=== PATIENT | female | born 1955 | race Caucasian/White ===

== ENCOUNTER 2020-10-23 20:34 | Inpatient (IN) ==
[2020-10-23] MEDS ORDERED: Naloxone 0.4 MG/ML INJ IVP PRN (22:48)
[2020-10-23] MEDS ORDERED: Ondansetron 4 MG/2 ML VIAL IVP PRN (22:48)
[2020-10-24] MEDS ORDERED: D5% in Water 1,000 ML IVC PRN ×2 (00:06→21:37)
[2020-10-24] MEDS ORDERED: Dextrose Gel 15 GM/37.5 ML TUBE PO PRN ×4 (00:06→21:37)
[2020-10-24] MEDS ORDERED: *HR* Dextrose 50 % in Water (Vial) 50 ML VIAL IVP PRN ×2 (00:06→21:37)
[2020-10-24] MEDS: *HR* OxyCODONE Immed Rel 5 MG TABLET PO PRN ×2 (00:33→10:35)
[2020-10-24] MEDS ORDERED: Perflutren Lipid Microsphere 1.3 ML in 0.9 % Sodium Chloride 8.7 ML IVP PRN (00:38)
[2020-10-24 01:43] LABS: Basophils % 0.2 %; Hematocrit 29.2 % (35.3-44.9); Lymphocytes % 2.9 %; Mean Corpuscular HGB Conc 27.4 g/dL (31.6-35.5); Mean Platelet Volume 12.4 fL (9.4-12.4)
[2020-10-24 01:45] LABS: Immature Granulocytes % 0.4 % (0-4); Lymphocytes # 0.5 K/mcL (0.6-4.6); Mean Corpuscular Hemoglobin 27.1 pg (28.0-33.3); Monocytes # 1.3 K/mcL (0.0-1.3); Monocytes % 8.2 %; Neutrophils # 14.4 K/mcL (1.6-8.9); Platelet Count 152 K/mcL (140-400); Red Blood Count 2.95 M/mcL (3.82-4.97); Red Cell Distribution Width 13.1 % (11.5-14.5); Segmented Neutrophils % 88.3 %; White Blood Count 16.3 K/mcL (4.3-11.1)
[2020-10-24 02:29] LABS: BUN/Creatinine Ratio 23 (6-26); Blood Urea Nitrogen 16 mg/dL (8-23); Calcium 8.4 mg/dL (8.6-10.3); Carbon Dioxide > 45 mEq/L (23-29); Chloride 86 mEq/L (98-107); Glucose 189 mg/dL (70-105); Osmolality,Calculated 296 (280-300); Sodium 140 mEq/L (136-145); eGFR For African Americans > 60 (> 60); eGFR For Non-African Americans > 60 (> 60)
[2020-10-24 02:39] LABS: Anisocytosis 1+ (Not Present); Hypochromasia Present (Not Present); Poikilocytosis 1+ (Not Present)
[2020-10-24 02:40] LABS: Platelet Estimate Normal (Normal); Stomatocytes 2+ (Not Present)
[2020-10-24] MEDS: Insulin LISPRO 300 UNITS/3 ML VIAL SUBQ SCH ×3 (06:20→18:46)
[2020-10-24 07:37] LABS: Adenovirus Not Detected (Not Detect); Bordetella Pertussis Not Detected (Not Detect); Chlamydophila pneumoniae Not Detected (Not Detect); Coronavirus 229E Not Detected (Not Detect); Coronavirus HKU1 Not Detected (Not Detect); Coronavirus NL63 Not Detected (Not Detect); Coronavirus OC43 Not Detected (Not Detect); Human Metapneumovirus Not Detected (Not Detect); Human Rhinovirus/Enterovirus Not Detected (Not Detect); Influenza A Subtype 2009 H1 Not Detected (Not Detect); Influenza B Not Detected (Not Detect); Mycoplasma pneumoniae Not Detected (Not Detect); Parainfluenza Virus 1 Not Detected (Not Detect); Parainfluenza Virus 2 Not Detected (Not Detect); Parainfluenza Virus 3 Not Detected (Not Detect); Parainfluenza Virus 4 Not Detected (Not Detect); Respiratory Syncytial Virus Not Detected (Not Detect); SARS-CoV-2 Not Detected (Not Detect)
[2020-10-24] MEDS ORDERED: Aspirin 81 MG TAB.CHEW PO SCH (09:00)
[2020-10-24] MEDS ORDERED: DilTIAZem CD (24hr) 120 MG CAP.ER.24H PO SCH (09:00)
[2020-10-24] MEDS ORDERED: Tiotropium 10 INH DOSE IH SCH (10:00)
[2020-10-24] MEDS ORDERED: Tiotropium 10 INH DOSE IH ONE (11:07)
[2020-10-24] MEDS: Budesonide/Formoterol 160/4.5 1 PUFF INH IH SCH ×2 (11:10→20:13)
[2020-10-24] MEDS ORDERED: Furosemide 40 MG TABLET PO SCH (15:15)
[2020-10-24] MEDS ORDERED: Vancomycin 1,000 MG VIAL ONE (16:35)
[2020-10-24] MEDS ORDERED: Ethanol\\Acetic Acid\\Na Ace\\Ben 1,000 ML IRRIG.SOLN IR ONE (16:35)
[2020-10-24] MEDS ORDERED: *HR* FentaNYL (PF) 100 MCG/2 ML VIAL ONE ×3 (16:43→17:30)
[2020-10-24] MEDS ORDERED: *HR* Propofol 200 MG/20 ML VIAL IVP ONE ×2 (17:28→17:30)
[2020-10-24] MEDS ORDERED: *HR* Rocuronium Bromide 50 MG/5 ML VIAL ONE ×2 (17:30→17:31)
[2020-10-24] MEDS ORDERED: *HR* Succinylcholine 200 MG/10 ML VIAL IVP ONE ×2 (17:30→17:31)
[2020-10-24] MEDS ORDERED: Lidocaine -MPF 2% 2 ML VIAL ONE ×2 (17:30→17:31)
[2020-10-24] MEDS ORDERED: Ondansetron 4 MG/2 ML VIAL ONE (17:31)
[2020-10-24] MEDS ORDERED: Dexamethasone 4 MG/ML VIAL ONE (17:31)
[2020-10-24] MEDS ORDERED: Ropivacaine/PF 0.5% 30 ML VIAL ONE (17:33)
[2020-10-24] MEDS ORDERED: *HR* Vasopressin 20 UNIT/ML VIAL ONE (18:05)
[2020-10-24] MEDS ORDERED: Albumin Human 5% 0 GM/0 ML IV.SOLN ONE (18:05)
[2020-10-24] MEDS ORDERED: Tranexamic Acid 1,000 MG/10 ML VIAL ONE (18:31)
[2020-10-24] MEDS ORDERED: Sugammadex Sodium 200 MG/2 ML VIAL IV ONE (18:50)
[2020-10-24] MEDS ORDERED: *HR* PHENYLEPHRINE 1,000 MCG/10 ML SYRINGE IVP ONE (19:03)
[2020-10-24] MEDS ORDERED: Ringers Solution, Lactated 1,000 ML ONE (20:28)
[2020-10-24 20:50] LABS: Hematocrit 28.5 % (35.3-44.9)
[2020-10-24] MEDS ORDERED: ROSUVASTATIN CALCIUM 5 MG PO SCH (21:00)
[2020-10-24] MEDS ORDERED: Ringers Solution, Lactated 1,000 ML IVC SCH (21:37)
[2020-10-24] MEDS ORDERED: Sennosides 8.6 MG TABLET PO PRN (21:37)
[2020-10-24] MEDS ORDERED: Ondansetron 4 MG/2 ML VIAL IVP PRN (21:37)
[2020-10-24] MEDS ORDERED: *HR* Promethazine 25 MG/ML VIAL IM PRN (21:37)
[2020-10-24] MEDS ORDERED: MOM Conc 10 ML UD.LIQ PO PRN (21:37)
[2020-10-24] MEDS ORDERED: Naloxone 0.4 MG/ML INJ IVP PRN (21:37)
[2020-10-24] MEDS ORDERED: *HR* OxyCODONE Immed Rel 5 MG TABLET PO PRN (21:37)
[2020-10-24] MEDS ORDERED: HYDROcodone BIT/Homatropine 5 MG TABLET PO PRN (21:37)
[2020-10-24] MEDS ORDERED: Budesonide/Formoterol 160/4.5 1 PUFF INH IH SCH (22:00)
[2020-10-24] MEDS ORDERED: Acetaminophen IV 500 MG/50 ML BAG IVPB ONE (22:30)
[2020-10-25] MEDS: Insulin LISPRO 300 UNITS/3 ML VIAL SUBQ SCH ×4 (00:23→18:45)
[2020-10-25] MEDS ORDERED: CeFAZolin 2 GM/120 ML BAG IVPB SCH ×2 (01:00→09:00)
[2020-10-25 04:29] LABS: ABG PCO2 > 150 mmHg (35-45); ABG PH 7.13 pH Units (7.32-7.45); ABG PO2 181 mmHg (85-104)
[2020-10-25 05:26] LABS: ABG Base Excess 20 mEq/L (-2 to 3); ABG HCO3 52 mEq/L (21-27); ABG Oxygen Saturation 54 % (95-98); ABG PCO2 137 mmHg (35-45); ABG PH 7.19 pH Units (7.32-7.45); ABG PO2 39 mmHg (85-104); ABG TCO2 > 50 mEq/L (20-26); Blood Gas Modality ASSIST CONTROL
[2020-10-25 05:50] LABS: Immature Granulocytes % 0.6 % (0-4); Mean Platelet Volume 12.4 fL (9.4-12.4); Segmented Neutrophils % 94.9 %
[2020-10-25 05:52] LABS: Basophils % 0.2 %; Eosinophils % 0.1 %; Hematocrit 31.6 % (35.3-44.9); Hemoglobin 8.7 g/dL (11.5-15.4); Lymphocytes # 0.2 K/mcL (0.6-4.6); Lymphocytes % 0.9 %; Mean Corpuscular HGB Conc 27.5 g/dL (31.6-35.5); Mean Corpuscular Hemoglobin 26.9 pg (28.0-33.3); Mean Corpuscular Volume 97.8 fL (83.0-100.0); Monocytes # 0.7 K/mcL (0.0-1.3); Monocytes % 3.3 %; Neutrophils # 18.9 K/mcL (1.6-8.9); Nucleated Red Blood Cells 0.1 /100 WBC (0); Platelet Count 108 K/mcL (140-400); Red Blood Count 3.23 M/mcL (3.82-4.97); Red Cell Distribution Width 15.8 % (11.5-14.5); White Blood Count 19.9 K/mcL (4.3-11.1)
[2020-10-25 06:14] LABS: BUN/Creatinine Ratio 28 (6-26); Blood Urea Nitrogen 24 mg/dL (8-23); Calcium 8.1 mg/dL (8.6-10.3); Carbon Dioxide > 45 mEq/L (23-29); Chloride 90 mEq/L (98-107); Glucose 142 mg/dL (70-105); Osmolality,Calculated 292 (280-300); Potassium 4.5 mEq/L (3.5-5.1); Sodium 138 mEq/L (136-145); eGFR For African Americans > 60 (> 60); eGFR For Non-African Americans > 60 (> 60)
[2020-10-25 06:22] LABS: Anisocytosis 1+ (Not Present); Hypochromasia Present (Not Present); Poikilocytosis 1+ (Not Present)
[2020-10-25 06:23] LABS: Platelet Estimate Slight Decrease (Normal)
[2020-10-25] MEDS ORDERED: Ondansetron 4 MG/2 ML VIAL IVP PRN (06:57)
[2020-10-25] MEDS ORDERED: *HR* Promethazine 25 MG/ML VIAL IM PRN (06:57)
[2020-10-25] MEDS ORDERED: *HR* OxyCODONE Immed Rel 5 MG TABLET PO PRN (06:57)
[2020-10-25] MEDS ORDERED: MOM Conc 10 ML UD.LIQ PO PRN (06:57)
[2020-10-25] MEDS ORDERED: Naloxone 0.4 MG/ML INJ IVP PRN (06:57)
[2020-10-25] MEDS ORDERED: D5% in Water 1,000 ML IVC PRN (06:57)
[2020-10-25] MEDS ORDERED: *HR* Dextrose 50 % in Water (Vial) 50 ML VIAL IVP PRN (06:57)
[2020-10-25] MEDS ORDERED: Dextrose Gel 15 GM/37.5 ML TUBE PO PRN ×2 (06:57)
[2020-10-25] MEDS ORDERED: HYDROcodone BIT/Homatropine 5 MG TABLET PO PRN (06:57)
[2020-10-25] MEDS ORDERED: Sennosides 8.6 MG TABLET PO PRN (06:57)
[2020-10-25] MEDS ORDERED: Isovue-370 500 ML BOTTLE IVP ONE (07:44)
[2020-10-25] MEDS ORDERED: Heparin 25,000UNIT/250ML 1/2NS 25,000 UNIT/250 ML IV.SOLN IVC SCH (07:45)
[2020-10-25] MEDS ORDERED: Acetaminophen IV 500 MG/50 ML BAG IVPB ONE (07:50)
[2020-10-25] MEDS ORDERED: Ascorbic Acid 500 MG TABLET PO SCH (08:00)
[2020-10-25] MEDS: Ipratropium/Albuterol Neb 3 ML IH SCH ×5 (08:07→23:51)
[2020-10-25 08:22] LABS: ABG Base Excess 23 mEq/L (-2 to 3); ABG HCO3 51 mEq/L (21-27); ABG Oxygen Saturation 27 % (95-98); ABG PCO2 89 mmHg (35-45); ABG PH 7.37 pH Units (7.32-7.45); ABG PO2 20 mmHg (85-104); ABG TCO2 > 50 mEq/L (20-26); Blood Gas Modality AVAPS; Blood Gas VT 500 cc
[2020-10-25] MEDS: Ringers Solution, Lactated 1,000 ML IVC SCH ×2 (08:31→19:33)
[2020-10-25] MEDS: Ascorbic Acid 500 MG TABLET PO SCH ×2 (08:31→17:20)
[2020-10-25] MEDS: DilTIAZem CD (24hr) 120 MG CAP.ER.24H PO SCH (08:32)
[2020-10-25] MEDS: Aspirin 81 MG TAB.CHEW PO SCH (08:32)
[2020-10-25] MEDS: Furosemide 40 MG TABLET PO SCH (08:32)
[2020-10-25] MEDS: Multivit/Ca/Min/Fe/FA 1 TAB TABLET PO SCH (08:32)
[2020-10-25] MEDS: Budesonide/Formoterol 160/4.5 1 PUFF INH IH SCH ×2 (08:35→20:02)
[2020-10-25 08:36] LABS: ABG Base Excess 19 mEq/L (-2 to 3); ABG HCO3 46 mEq/L (21-27); ABG Oxygen Saturation 99 % (95-98); ABG PCO2 75 mmHg (35-45); ABG PO2 133 mmHg (85-104); ABG TCO2 48 mEq/L (20-26); Blood Gas VT 500 cc
[2020-10-25] MEDS: Tiotropium 10 INH DOSE IH SCH (08:36)
[2020-10-25 08:43] LABS: Hematocrit 27.4 % (35.3-44.9); Hemoglobin 7.7 g/dL (11.5-15.4); Mean Corpuscular HGB Conc 28.1 g/dL (31.6-35.5); Mean Corpuscular Hemoglobin 26.9 pg (28.0-33.3); Mean Corpuscular Volume 95.8 fL (83.0-100.0); Platelet Count 110 K/mcL (140-400); Red Blood Count 2.86 M/mcL (3.82-4.97); Red Cell Distribution Width 15.7 % (11.5-14.5); White Blood Count 16.1 K/mcL (4.3-11.1)
[2020-10-25 08:57] LABS: Prothrombin Time 11.6 Seconds (9.4-12.1)
[2020-10-25 08:59] LABS: Activated Partial Thrombo Time 24.1 Seconds (26.0-36.0); Heparin anti-factor XA UFH < 0.04 IU/mL (0.30-0.70)
[2020-10-25] MEDS ORDERED: Multivit/Ca/Min/Fe/FA 1 TAB TABLET PO SCH (09:00)
[2020-10-25] MEDS ORDERED: DilTIAZem CD (24hr) 120 MG CAP.ER.24H PO SCH ×2 (09:00)
[2020-10-25] MEDS ORDERED: Furosemide 40 MG TABLET PO SCH (09:00)
[2020-10-25] MEDS ORDERED: Aspirin 81 MG TAB.CHEW PO SCH (09:00)
[2020-10-25 09:01] LABS: Albumin 3.1 g/dL (3.5-5.7); Albumin/Globulin Ratio 1.6 (1.1-2.2); Bilirubin,Direct 0.2 mg/dL (0.0-0.2); Bilirubin,Indirect 0.4 mg/dL (0.0-1.0); Bilirubin,Total 0.6 mg/dL (0.3-1.0); Globulin 1.9 g/dL (2.4-3.5); Magnesium 1.5 mg/dL (1.6-2.6); Phosphorous 2.5 mg/dL (2.7-4.5); Troponin I 0.03 ng/mL (< 0.04)
[2020-10-25] MEDS ORDERED: Tiotropium 10 INH DOSE IH SCH (10:00)
[2020-10-25] MEDS ORDERED: Aspirin Enteric Coated 81 MG Tablet PO SCH ×2 (17:49)
[2020-10-25] MEDS: MethylPREDNISolone 40 MG/ML VIAL IVP SCH ×2 (18:44→23:46)
[2020-10-25] MEDS: Pantoprazole 40 MG VIAL IVP SCH (18:45)
[2020-10-25] MEDS: *HR* Heparin 5,000 UNIT/ML VIAL SQ SCH (22:06)
[2020-10-26] MEDS: Insulin LISPRO 300 UNITS/3 ML VIAL SUBQ SCH ×4 (00:19→22:07)
[2020-10-26] MEDS: Ipratropium/Albuterol Neb 3 ML IH SCH ×6 (03:48→22:52)
[2020-10-26] MEDS: *HR* Heparin 5,000 UNIT/ML VIAL SQ SCH ×2 (05:19→17:07)
[2020-10-26] MEDS: Pantoprazole 40 MG VIAL IVP SCH (05:19)
[2020-10-26] MEDS ORDERED: Calcium Gluconate 1gm/50mL 1 GM/50 ML BAG IVPB PRN (08:08)
[2020-10-26] MEDS ORDERED: Potassium Phosphate 44 MEQ in 0.9 % Sodium Chloride 250 ML IVPB PRN ×2 (08:08→15:39)
[2020-10-26] MEDS: Budesonide/Formoterol 160/4.5 1 PUFF INH IH SCH ×2 (08:18→20:47)
[2020-10-26] MEDS: Tiotropium 10 INH DOSE IH SCH (08:19)
[2020-10-26] MEDS: DilTIAZem CD (24hr) 120 MG CAP.ER.24H PO SCH (08:31)
[2020-10-26] MEDS: Multivit/Ca/Min/Fe/FA 1 TAB TABLET PO SCH (08:31)
[2020-10-26] MEDS: Ascorbic Acid 500 MG TABLET PO SCH ×3 (08:31→17:07)
[2020-10-26] MEDS: MethylPREDNISolone 40 MG/ML VIAL IVP SCH (08:31)
[2020-10-26] MEDS: Aspirin 81 MG TAB.CHEW PO SCH (08:32)
[2020-10-26] MEDS: Furosemide 40 MG TABLET PO SCH (08:32)
[2020-10-26 09:12] LABS: VBG Ionized Calcium 0.99 mmol/L (1.15-1.35)
[2020-10-26 09:29] LABS: Basophils % 0.1 %; Immature Granulocytes % 0.6 % (0-4); Monocytes % 5.3 %; Platelet Count 122 K/mcL (140-400)
[2020-10-26 09:31] LABS: Hematocrit 23.6 % (35.3-44.9); Hemoglobin 6.7 g/dL (11.5-15.4); Immature Platelets 19.7 % (1.1-6.1); Lymphocytes # 0.3 K/mcL (0.6-4.6); Lymphocytes % 1.8 %; Mean Corpuscular HGB Conc 28.4 g/dL (31.6-35.5); Mean Corpuscular Hemoglobin 26.6 pg (28.0-33.3); Mean Corpuscular Volume 93.7 fL (83.0-100.0); Mean Platelet Volume 12.9 fL (9.4-12.4); Monocytes # 0.9 K/mcL (0.0-1.3); Red Blood Count 2.52 M/mcL (3.82-4.97); Red Cell Distribution Width 14.6 % (11.5-14.5); Segmented Neutrophils % 92.2 %; White Blood Count 16.3 K/mcL (4.3-11.1)
[2020-10-26 11:12] LABS: BUN/Creatinine Ratio 40 (6-26); Blood Urea Nitrogen 23 mg/dL (8-23); Calcium 8.1 mg/dL (8.6-10.3); Carbon Dioxide 40 mEq/L (23-29); Chloride 88 mEq/L (98-107); Glucose 121 mg/dL (70-105); Magnesium 1.8 mg/dL (1.6-2.6); Osmolality,Calculated 289 (280-300); Phosphorous 2.8 mg/dL (2.7-4.5); Potassium 3.7 mEq/L (3.5-5.1); Sodium 137 mEq/L (136-145); eGFR For African Americans > 60 (> 60); eGFR For Non-African Americans > 60 (> 60)
[2020-10-26] MEDS ORDERED: Ondansetron 4 MG/2 ML VIAL IVP PRN (15:39)
[2020-10-26] MEDS ORDERED: Dextrose Gel 15 GM/37.5 ML TUBE PO PRN ×2 (15:39)
[2020-10-26] MEDS ORDERED: Naloxone 0.4 MG/ML INJ IVP PRN (15:39)
[2020-10-26] MEDS ORDERED: MOM Conc 10 ML UD.LIQ PO PRN (15:39)
[2020-10-26] MEDS ORDERED: *HR* Dextrose 50 % in Water (Vial) 50 ML VIAL IVP PRN (15:39)
[2020-10-26] MEDS ORDERED: *HR* Promethazine 25 MG/ML VIAL IM PRN (15:39)
[2020-10-26] MEDS ORDERED: D5% in Water 1,000 ML IVC PRN (15:39)
[2020-10-26] MEDS ORDERED: Sennosides 8.6 MG TABLET PO PRN (15:39)
[2020-10-26] MEDS ORDERED: *HR* OxyCODONE Immed Rel 5 MG TABLET PO PRN (15:39)
[2020-10-26] MEDS ORDERED: Cefepime HCl 1,000 MG in 0.9 % Sodium Chloride Mini Bag 100 ML IVPB SCH (16:00)
[2020-10-26] MEDS ORDERED: Ipratropium/Albuterol Neb 3 ML ONE (16:01)
[2020-10-26 16:02] LABS: Hematocrit 24.5 % (35.3-44.9); Hemoglobin 7.1 g/dL (11.5-15.4); Mean Corpuscular Hemoglobin 27.3 pg (28.0-33.3); Mean Corpuscular Volume 94.2 fL (83.0-100.0); Mean Platelet Volume 12.2 fL (9.4-12.4); Platelet Count 121 K/mcL (140-400); Red Cell Distribution Width 14.5 % (11.5-14.5); White Blood Count 15.8 K/mcL (4.3-11.1)
[2020-10-26] MEDS ORDERED: Insulin LISPRO 300 UNITS/3 ML VIAL SUBQ SCH (18:00)
[2020-10-26] MEDS: HYDROcodone BIT/Homatropine 5 MG TABLET PO PRN (19:47)
[2020-10-27 03:27] LABS: Hemoglobin 6.1 g/dL (11.5-15.4); Immature Granulocytes % 0.4 % (0-4); Platelet Count 107 K/mcL (140-400); Red Cell Distribution Width 14.2 % (11.5-14.5)
[2020-10-27 03:29] LABS: Hematocrit 21.3 % (35.3-44.9); Lymphocytes # 0.4 K/mcL (0.6-4.6); Lymphocytes % 4.2 %; Mean Corpuscular HGB Conc 28.6 g/dL (31.6-35.5); Mean Corpuscular Hemoglobin 26.6 pg (28.0-33.3); Mean Platelet Volume 12.4 fL (9.4-12.4); Monocytes # 1.1 K/mcL (0.0-1.3); Monocytes % 11.5 %; Nucleated Red Blood Cells 0.3 /100 WBC (0); Red Blood Count 2.29 M/mcL (3.82-4.97); Segmented Neutrophils % 83.9 %; White Blood Count 9.7 K/mcL (4.3-11.1)
[2020-10-27 03:42] LABS: Neutrophils # 8.1 K/mcL (1.6-8.9)
[2020-10-27 03:58] LABS: Anisocytosis 1+ (Not Present); Hypochromasia Present (Not Present); Platelet Estimate Normal (Normal)
[2020-10-27 04:02] LABS: BUN/Creatinine Ratio 37 (6-26); Blood Urea Nitrogen 19 mg/dL (8-23); Calcium 8.1 mg/dL (8.6-10.3); Carbon Dioxide > 45 mEq/L (23-29); Chloride 88 mEq/L (98-107); Glucose 120 mg/dL (70-105); Magnesium 1.6 mg/dL (1.6-2.6); Osmolality,Calculated 287 (280-300); Phosphorous 1.4 mg/dL (2.7-4.5); Potassium 3.6 mEq/L (3.5-5.1); Sodium 137 mEq/L (136-145); eGFR For African Americans > 60 (> 60); eGFR For Non-African Americans > 60 (> 60)
[2020-10-27] MEDS: Ipratropium/Albuterol Neb 3 ML IH SCH ×6 (04:22→23:39)
[2020-10-27] MEDS ORDERED: 0.9 % Sodium Chloride 250 ML IVC SCH (04:30)
[2020-10-27] MEDS: *HR* Heparin 5,000 UNIT/ML VIAL SQ SCH ×2 (05:09→18:08)
[2020-10-27] MEDS: Budesonide/Formoterol 160/4.5 1 PUFF INH IH SCH ×2 (07:35→20:04)
[2020-10-27] MEDS ORDERED: Potassium Phosphate 44 MEQ in 0.9 % Sodium Chloride 250 ML IVPB ONE ×2 (08:35→17:15)
[2020-10-27] MEDS ORDERED: predniSONE 20 MG TABLET PO SCH (09:00)
[2020-10-27] MEDS: Insulin LISPRO 300 UNITS/3 ML VIAL SUBQ SCH ×4 (09:09→20:38)
[2020-10-27] MEDS: DilTIAZem CD (24hr) 120 MG CAP.ER.24H PO SCH (09:19)
[2020-10-27] MEDS: Furosemide 40 MG TABLET PO SCH (09:19)
[2020-10-27] MEDS: Multivit/Ca/Min/Fe/FA 1 TAB TABLET PO SCH (09:20)
[2020-10-27] MEDS: Aspirin 81 MG TAB.CHEW PO SCH (09:20)
[2020-10-27] MEDS: Ascorbic Acid 500 MG TABLET PO SCH ×2 (09:20→18:08)
[2020-10-27] MEDS ORDERED: Tiotropium 10 INH DOSE IH SCH (10:00)
[2020-10-27] MEDS ORDERED: Furosemide 20 MG/2 ML VIAL IVP ONE ×2 (13:45→16:00)
[2020-10-27 17:25] LABS: Hematocrit 26.3 % (35.3-44.9)
[2020-10-27] MEDS: HYDROcodone BIT/Homatropine 5 MG TABLET PO PRN (23:31)
[2020-10-28 02:29] LABS: Hematocrit 24.4 % (35.3-44.9); Hemoglobin 7.4 g/dL (11.5-15.4); Mean Corpuscular HGB Conc 30.3 g/dL (31.6-35.5); Mean Corpuscular Hemoglobin 27.5 pg (28.0-33.3); Mean Corpuscular Volume 90.7 fL (83.0-100.0); Mean Platelet Volume 12.6 fL (9.4-12.4); Platelet Count 115 K/mcL (140-400); Red Blood Count 2.69 M/mcL (3.82-4.97); Red Cell Distribution Width 15.2 % (11.5-14.5); White Blood Count 11.4 K/mcL (4.3-11.1)
[2020-10-28 03:37] LABS: BUN/Creatinine Ratio 32 (6-26); Blood Urea Nitrogen 20 mg/dL (8-23); Calcium 7.3 mg/dL (8.6-10.3); Carbon Dioxide > 45 mEq/L (23-29); Chloride 90 mEq/L (98-107); Glucose 155 mg/dL (70-105); Osmolality,Calculated 298 (280-300); Potassium 4.4 mEq/L (3.5-5.1); Sodium 141 mEq/L (136-145); eGFR For African Americans > 60 (> 60); eGFR For Non-African Americans > 60 (> 60)
[2020-10-28] MEDS: Ipratropium/Albuterol Neb 3 ML IH SCH ×6 (04:07→23:40)
[2020-10-28] MEDS: *HR* Heparin 5,000 UNIT/ML VIAL SQ SCH ×2 (05:22→18:28)
[2020-10-28] MEDS: Budesonide/Formoterol 160/4.5 1 PUFF INH IH SCH ×2 (07:48→19:46)
[2020-10-28] MEDS: Insulin LISPRO 300 UNITS/3 ML VIAL SUBQ SCH ×4 (08:16→20:07)
[2020-10-28] MEDS: Aspirin 81 MG TAB.CHEW PO SCH (09:25)
[2020-10-28] MEDS: Multivit/Ca/Min/Fe/FA 1 TAB TABLET PO SCH (09:25)
[2020-10-28] MEDS: DilTIAZem CD (24hr) 120 MG CAP.ER.24H PO SCH (09:25)
[2020-10-28] MEDS: Furosemide 40 MG TABLET PO SCH (09:25)
[2020-10-28] MEDS: HYDROcodone BIT/Homatropine 5 MG TABLET PO PRN ×2 (09:26→22:10)
[2020-10-28] MEDS: Ascorbic Acid 500 MG TABLET PO SCH ×2 (09:26→16:49)
[2020-10-28] MEDS ORDERED: 0.9 % Sodium Chloride 250 ML ONE (11:42)
[2020-10-28 15:50] LABS: Adenovirus Not Detected (Not Detect); Bordetella Pertussis Not Detected (Not Detect); Chlamydophila pneumoniae Not Detected (Not Detect); Coronavirus 229E Not Detected (Not Detect); Coronavirus HKU1 Not Detected (Not Detect); Coronavirus NL63 Not Detected (Not Detect); Coronavirus OC43 Not Detected (Not Detect); Human Metapneumovirus Not Detected (Not Detect); Human Rhinovirus/Enterovirus Not Detected (Not Detect); Influenza A Subtype 2009 H1 Not Detected (Not Detect); Influenza B Not Detected (Not Detect); Mycoplasma pneumoniae Not Detected (Not Detect); Parainfluenza Virus 1 Not Detected (Not Detect); Parainfluenza Virus 2 Not Detected (Not Detect); Parainfluenza Virus 3 Not Detected (Not Detect); Parainfluenza Virus 4 Not Detected (Not Detect); Respiratory Syncytial Virus Not Detected (Not Detect); SARS-CoV-2 Not Detected (Not Detect)
[2020-10-28 17:25] LABS: Hematocrit 29.7 % (35.3-44.9)
[2020-10-28 17:28] LABS: Hemoglobin 9.1 g/dL (11.5-15.4)
[2020-10-28] MEDS: *HR* OxyCODONE Immed Rel 5 MG TABLET PO PRN (20:07)
[2020-10-29 01:11] LABS: Hematocrit 31.4 % (35.3-44.9); Hemoglobin 9.4 g/dL (11.5-15.4); Mean Corpuscular HGB Conc 29.9 g/dL (31.6-35.5); Mean Corpuscular Hemoglobin 27.5 pg (28.0-33.3); Mean Corpuscular Volume 91.8 fL (83.0-100.0); Mean Platelet Volume 12.4 fL (9.4-12.4); Platelet Count 140 K/mcL (140-400); Red Blood Count 3.42 M/mcL (3.82-4.97); White Blood Count 11.3 K/mcL (4.3-11.1)
[2020-10-29 01:36] LABS: BUN/Creatinine Ratio 29 (6-26); Blood Urea Nitrogen 17 mg/dL (8-23); Calcium 7.8 mg/dL (8.6-10.3); Carbon Dioxide > 45 mEq/L (23-29); Chloride 90 mEq/L (98-107); Glucose 139 mg/dL (70-105); Osmolality,Calculated 292 (280-300); Potassium 3.7 mEq/L (3.5-5.1); Sodium 139 mEq/L (136-145); eGFR For African Americans > 60 (> 60); eGFR For Non-African Americans > 60 (> 60)
[2020-10-29] MEDS: Ipratropium/Albuterol Neb 3 ML IH SCH ×3 (03:38→11:25)
[2020-10-29] MEDS: *HR* OxyCODONE Immed Rel 5 MG TABLET PO PRN ×2 (03:41→11:52)
[2020-10-29] MEDS: *HR* Heparin 5,000 UNIT/ML VIAL SQ SCH (05:42)
[2020-10-29 07:01] VITALS: BP 112/78
[2020-10-29] MEDS: Budesonide/Formoterol 160/4.5 1 PUFF INH IH SCH (07:41)
[2020-10-29] MEDS: Aspirin 81 MG TAB.CHEW PO SCH (08:36)
[2020-10-29] MEDS: DilTIAZem CD (24hr) 120 MG CAP.ER.24H PO SCH (08:36)
[2020-10-29] MEDS: Furosemide 40 MG TABLET PO SCH (08:36)
[2020-10-29] MEDS: Multivit/Ca/Min/Fe/FA 1 TAB TABLET PO SCH (08:37)
[2020-10-29] MEDS: Ascorbic Acid 500 MG TABLET PO SCH (08:37)
[2020-10-29] MEDS: Insulin LISPRO 300 UNITS/3 ML VIAL SUBQ SCH ×2 (08:40→12:22)
== END 2020-10-29 12:51 | DRG 466 ==
LOC: 3NENU → SUATTDRO 22:15 → ICNU 10-25 06:22 → 3NENU 10-26 18:09
PROVIDERS: ADMIT Family Medicine; ATTEND Internal Medicine